=== PATIENT | male | born 1950 | race Caucasian/White ===

== ENCOUNTER 2023-04-11 10:05 | Emergency (ER) | payer MEDICARE, OTHER, SELFPAY ==
[2023-04-11 10:14] VITALS: BP 157/96; PULSE 76; RESP 17; TEMP 36.7; O2SAT 100; BMI 23.6
[2023-04-11 10:58] LABS: Basophils # 0.1 10^3/uL (0.0-0.1); Basophils % 0.9 %; Eosinophils # 0.1 10^3/uL (0.0-0.8); Eosinophils % 2.2 %; Hematocrit 40.4 % (42.0-52.0); Hemoglobin 14.3 g/dL (11.7-16.6); Lymphocytes # 1.4 10^3/uL (0.8-4.8); Lymphocytes % 22.1 %; Mean Corpuscular HGB Conc 35.4 g/dL (30.0-36.0); Mean Corpuscular Hemoglobin 34.3 pg (28.0-34.0); Mean Corpuscular Volume 96.9 fl (80-94); Mean Platelet Volume 10.2 fL (7.4-10.4); Monocytes # 0.5 10^3/uL (0.2-0.9); Monocytes % 7.1 %; Neutrophils # 4.37 10^3/uL (1.8-7.7); Neutrophils % 67.5 %; Nucleated Red Blood Cells % 0 %; Platelet Count 145 10^3/cmm (130-400); Red Blood Count 4.17 10^6/uL (4.1-5.3); Red Cell Distribution Width 12.2 % (12.1-15.1); White Blood Count 6.5 10^3/uL (4.0-10.0)
--- NOTE | 2023-04-11 11:06 | XR_ITS ---
WS: [id number] Left leg including the tibia and fibula, 4 views, 04/11/2023 Clinical Data: LEG PAIN Comparison: None. Findings: No fractures or dislocations are seen. The tibia and fibula are intact. The soft tissues are normal. There is minimal vascular calcification. XR/XR tibia fibula LT 2V [id number] Impression: Negative left leg
--- NOTE | 2023-04-11 11:06 | XR_ITS ---
WS: [id number] Right leg including the tibia and fibula, 4 views, 04/11/2023 Clinical Data: leg pain Comparison: None. Findings: No fractures or dislocations are seen. The tibia and fibula are intact. The soft tissues are normal. Vascular calcifications. XR/XR tibia fibula RT 2V [id number] Impression: Negative right leg.
--- NOTE | 2023-04-11 11:16 | W.ED.EXTPRO ---
HPI - Extremity Problem General: Chief complaint: Extremity Problem,Nontraumatic Stated complaint: legs cramping Time Seen by Provider: 04/11/23 10:13 History of Present Illness: Patient is in today for leg pain. He reports that approximately 2:00 this morning he woke up with bilateral pain to his calves. He reports the pain is on the lateral aspect of the calves. He denies any posterior calf pain. He denies any recent injury or new activity. He denies any recent prolonged travel or sitting. He denies any history of blood clot. He denies shortness of breath or chest pain. He states that the pain is worse with weightbearing and palpation and is better with rest. He denies any saddle anesthesia, loss of bowel or bladder control. He did babysit his grandchildren yesterday but that is not a new occurrence for him. He states that it feels like muscle spasming however he does not feel the muscle spasm Associated symptoms: Deny chest pain or fever(s) Review of Systems Const: Denies: fever(s) or chills Card: Denies: chest pain or palpitations Resp: Denies: dyspnea, productive cough or non-productive cough Musc: Reports: other (Pain to bilateral lateral calves) Physical Exam Const: COMMON NORMALS: no acute distress, patient oriented x3 and alert Neck/C-Spine: COMMON NORMALS: no JVD Resp: COMMON NORMALS: normal respiratory effort, No use of accessory muscles and clear to auscultation bilaterally AUSCULTATION: clear to auscultation bilaterally Cardio: COMMON NORMALS: no JVD, regular rate, regular rhythm and S1 normal heart sound present RATE: regular rate RHYTHM: regular rhythm HEART SOUNDS: S1 normal heart sound present Extremity: NARRATIVE EXTREMITY EXAM: There is no obvious bony or soft tissue deformity noted to bilateral lower extremities. There is no erythema or swelling appreciated. Patient does have some tenderness to palpation of the lateral musculature of the calf. Neuro: COMMON NORMALS: patient oriented x3 SENSORIUM/ORIENTATION: Yes alert Course Vital Signs: Vital signs: Vital Signs Temperature 98.1 F 04/11/23 10:14 Pulse Rate 68 04/11/23 13:17 Respiratory Rate 17 04/11/23 10:14 Blood Pressure 158/96 04/11/23 11:49 Pulse Oximetry 98 04/11/23 13:17 Oxygen Delivery Me thod Room Air 04/11/23 10:14 MDM - Extremity (Nontraumatic) Medical Decision Making Patient is in for sudden onset bilateral lower extremity pain. Considered DVT, muscle pain, muscle spasm, electrolyte imbalance, stress fracture, central disc bulge lumbar. Wells score (-2). Labs do not indicate any major bacterial infection. Potassium is within normal limits. Sodium is slightly low. Ultrasound bilateral lower extremities does not show any evidence of a DVT.. X-rays bilateral tib-fib's no acute osseous deformities appreciated. I did discuss his case with Dr. Geronimo who agrees that lower extremity ultrasound should be done. Discussed results of ultrasounds with Dr. Geronimo and he advised that he recommends referral to Ortho spine surgeon for patient for potential further evaluation and rule out bulging disc. Discussed this with patient who is very agreeable to plan of care. Provided burst pack of steroids. Dr. Flores had left I spoke with Dr. Juárez who provided outpatient pain control hydrocodone 5 325 mg 1 p.o. every 6 hours #12 no refills. Advised patient to return to the ER as needed for any new or worsening symptoms. Lab Data 04/11/23 10:47 04/11/23 10:47 Radiology Impressions Tibia/Fibula X-Ray 04/11/23 11:06 Impression: Negative left leg Laboratory Results WBC 6.5 10^3/uL (4.0-10.0) 04/11/23 10:47 RBC 4.17 10^6/uL (4.1-5.3) 04/11/23 10:47 Hgb 14.3 g/dL (11.7-16.6) 04/11/23 10:47 Hct 40.4 % (42.0-52.0) L 04/11/23 10:47 MCV 96.9 fl (80-94) H 04/11/23 10:47 MCH 34.3 pg (28.0-34.0) H 04/11/23 10:47 MCHC 35.4 g/dL (30.0-36.0) 04/11/23 10:47 RDW 12.2 % (12.1-15.1) 04/11/23 10:47 Plt Count 145 10^3/cmm (130-400) 04/11/23 10:47 MPV 10.2 fL (7.4-10.4) 04/11/23 10:47 Neut % (Auto) 67.5 % 04/11/23 10:47 Lymph % (Auto) 22.1 % 04/11/23 10:47 [place] % (Auto) 7.1 % 04/11/23 10:47 Eos % (Auto) 2.2 % 04/11/23 10:47 Baso % (Auto) 0.9 % 04/11/23 10:47 Neut # (Auto) 4.37 10^3/uL (1.8-7.7) 04/11/23 10:47 Lymph # (Auto) 1.4 10^3/uL (0.8-4.8) 04/11/23 10:47 [place] # (Auto) 0.5 10^3/uL (0.2-0.9) 04/11/23 10:47 Eos # (Auto) 0.1 10^3/uL (0.0-0.8) 04/11/23 10:47 Baso # (Auto) 0.1 10^3/uL (0.0-0.1) 04/11/23 10:47 Nucleated RBC % (auto) 0 % 04/11/23 10:47 Nucleated RBCs # 0.0 /100WBC 04/11/23 10:47 Sodium 135 mmol/L (136-145) L 04/11/23 10:47 Potassium 4.0 mmol/L (3.5-5.1) 04/11/23 10:47 Chloride 100 mmol/L (98-107) 04/11/23 10:47 Carbon Dioxide 23 mmol/L (22-29) 04/11/23 10:47 Anion Gap 16.0 (5-19) 04/11/23 10:47 BUN 7 mg/dL (8-23) L 04/11/23 10:47 Creatinine 0.6 mg/dL (0.7-1.2) L 04/11/23 10:47 GFR Calculation 133.2 mL/min (90-130) H 04/11/23 10:47 Glucose 106 mg/dL (65-115) 04/11/23 10:47 Calculated Osmolality 278 mOsm/kg (285-295) L 04/11/23 10:47 Calcium 9.2 mg/dL (8.5-10.5) 04/11/23 10:47 Total Bilirubin 0.4 mg/dL (0.15-1.2) 04/11/23 10:47 AST 19 U/L (0-40) 04/11/23 10:47 ALT 17 U/L (0-41) 04/11/23 10:47 Alkaline Phosphatase 75 U/L (40-130) 04/11/23 10:47 Total Protein 6.0 g/dL (6.6-8.7) L 04/11/23 10:47 Albumin 4.2 g/dL (3.5-5.2) 04/11/23 10:47 Globulin 1.8 g/dL (1.3-4.6) 04/11/23 10:47 Discharge Plan Discharge Patient Disposition: Home Clinical Impression: Acute leg pain Condition: Stable Prescriptions: New prednisone 20 mg tablet 40 mg PO DAILY 5 Days Qty: 10 0RF Rx Instructions: days 11-21 of therapy No Action amlodipine 5 mg tablet 5 mg PO DAILY trazodone 100 mg tablet 100 mg PO DAILY Discharge Orders: Discharge ED (Routine); Ordered 04/11/23 Ordered By: Zofia Gibbs Referrals: Rell Quiles DO [Primary Care Provider] - Discharge Activity: Increase activity as tolerated Activity Restrictions/Additional Instructions: Take prednisone as directed with food. Take pain medication as directed as needed for pain. Do not drive or operate machinery after taking pain medication. Follow-up with orthopedics/spine surgeon for continued evaluation of persisting pain. Return to the ER as needed for new or worsening symptoms Coding Level of Care Code ED Interrelated Special Education Teacher for Doug Gant
[2023-04-11 11:17] LABS: Alanine Aminotransferase 17 U/L (0-41); Albumin Level 4.2 g/dL (3.5-5.2); Alkaline Phosphatase 75 U/L (40-130); Aspartate Amino Transferase 19 U/L (0-40); Blood Urea Nitrogen 7 mg/dL (8-23); Calcium 9.2 mg/dL (8.5-10.5); Carbon Dioxide 23 mmol/L (22-29); Chloride 100 mmol/L (98-107); Globulin 1.8 g/dL (1.3-4.6); Glomerular Filtration Rate 133.2 mL/min (90-130); Glucose 106 mg/dL (65-115); Osmolality Calculated 278 mOsm/kg (285-295); Sodium 135 mmol/L (136-145); Total Bilirubin 0.4 mg/dL (0.15-1.2)
--- NOTE | 2023-04-11 11:17 | USCV_ITS ---
JuAmos taylor Age: 72 Gender: M : 1950 Exam Date: 04/11/2023 11:52 Ordering Phys: Zofia Gibbs Technologist: KRYSTIN [place] [facility] [place] BLE PAIN HISTORY: Lower extremity pain. PROCEDURES: Venous duplex imaging was performed in bilateral lower extremities. The following venous structures were evaluated: common femoral vein, profunda vein, proximal portion of the greater saphenous vein, superficial femoral vein, and the popliteal vein. In addition, the posterior tibial and peroneal trunk were evaluated. Serial compression, augmentation maneuvers, and spectral Doppler flow evaluation were performed. FINDINGS: Normal 2-D Doppler and augmentation and compressibility throughout the lower extremity venous structures. Additional imaging through the proximal calf veins also reveals no thrombus. Limited evaluation of the greater saphenous vein is patent with no thrombus. Complex cystic mass with low level echos and no vascularity measuring 3.1 cm in the left popliteal fossa. CONCLUSIONS No DVT bilateral lower extremities. Dr. Diana Waters DO (Electronically Signed) Final Date: 11 April 2023 12:12 S
[2023-04-11 11:49] VITALS: BP 158/96; PULSE 60; O2SAT 98
[2023-04-11 13:17] VITALS: PULSE 68; O2SAT 98
--- NOTE | 2023-04-11 14:37 | DCPLANNER ---
Addendum entered by Ambar Crockett 04/16/23 15:08: technology project manager called [facility] to confirm that patients information had been received. technology project manager was told that it was received, will be reviewed, and clinic will call patient with appointment information. Original Note: technology project manager had message to schedule an outpatient appointment for patient with [facility]. technology project manager faxed patients information to the [facility] clinic, patients information will be reviewed. Clinic will call patient with appointment information.
== END 2023-04-11 13:18 | disposition home or self-care (01) ==
PROVIDERS: Emergency Provider Nurse Practitioner Family; PCP Internal Medicine
DX: M79.605 Pain in left leg (principal); M79.604 Pain in right leg
CPT/HCPCS: 36415; 73590; 80053; 85025; 93970; 99285

== ENCOUNTER 2025-03-02 10:40 | Emergency (ER) | payer MEDICARE, OTHER, SELFPAY ==
--- NOTE | 2025-03-02 10:44 | CTR_ITS ---
PROCEDURE INFORMATION: Exam: CT Head Without Contrast Exam date and time: 03/02/2025 11:48 AM Age: 74 years old Clinical indication: Injury or trauma; Fall; Blunt trauma (contusions or hematomas); Injury details: Fell in shower hitting posterior head on bathtub x this am TECHNIQUE: Imaging protocol: Computed tomography of the head without contrast. Radiation optimization: All CT scans at this facility use at least one of these dose optimization techniques: automated exposure control; mA and/or kV adjustment per patient size (includes targeted exams where dose is matched to clinical indication); or iterative reconstruction. COMPARISON: No relevant prior studies available. RADIATION DOSE METRICS: Total DLP (mGy-cm): 1055.83 FINDINGS: Brain: Moderate periventricular and subcortical white matter hypodensities compatible with chronic small vessel ischemic disease. No intracranial hemorrhage. No acute infarct. No extra-axial fluid collection. Cerebral ventricles: No ventriculomegaly. Paranasal sinuses: Multifocal sinus opacification. Mastoid air cells: Visualized mastoid air cells are well aerated. Bones: Unremarkable. No acute fracture. Soft tissues: Calcified soft tissue lesion in the right lateral scalp CT/CT head wo con* [id number] IMPRESSION: No acute intracranial abnormality.
[2025-03-02 10:46] VITALS: BP 114/62; PULSE 88; RESP 16; TEMP 36.7; O2SAT 97; BMI 24.3
--- OUTSIDE RECORDS SUMMARY | 2025-03-02 11:25 | XMS_ITS | Clinical Summary ---
Author Organization [facility] Address [address] [facility] Attn: Epic Prelude ADT [place] [address] Care Team Providers Care Dryer Operator Name Role Phone Rell Quiles DO Primary Care Provide r Allergies No known active allergies Medications traZODone (DESYREL) 100 mg tablet 1 Tablet daily at bedtime. 1/2 to 1 tab nightly as needed 5 10/07/2018 Active omeprazole (PriLOSEC) 40 mg Capsule, Delayed Release(E.C.) Take 40 mg by mouth 1 time daily as needed. 09/18/2018 Active amLODIPine (NORVASC) 5 mg tablet Take 5 mg by mouth daily. 08/11/2019 Active OTHER Take 1 Tablet by mouth. RESTFUL LEGS as needed 09/24/2019 Active albuterol sulfate HFA 90 mcg/actuation aerosol inhaler INHALE 2 PUFFS EVERY 4 HOURS BY MOUTH NEEDED Active tadalafiL (CIALIS) 20 mg tablet Take 20 mg by mouth 1 time daily as needed. Active Active Problems Problem Noted Date Diagnosed Date Lumbar post-laminectomy syndrome 01/12/2025 History of lumbar fusion 01/12/2025 Degeneration of intervertebr al disc of lumbosacral region with discogenic back pain and lower extremity pain 01/12/2025 Discogenic low back pain 01/12/2025 Lumbosacral spondylosis without myelopathy 01/12 Lumbar facet joint pain 01/12/2025 Low back pain 12/09/2024 Wound dehiscence, surgical 10/19/2019 Spinal stenosis of lumbar re gion with neurogenic claudication 10/13/2019 COPD (chronic obstructive pulmonary disease) Gastroesophageal reflux disease without esophagi tis 09/24/2019 Essential hypertension 09/24/2019 Insomnia 09/24/2019 Preoperative general physical examination 2019 Restless leg syndrome 09/24/2019 History of lumbar surgery 12/14/2018 Overview (01/04/2021): 08/27/12 - L4-5 fusion; 02/2011 L L4-5 lami/discectomy [facility] of lumbar spine 12/15/19 19 Lumbar facet arthropathy 12/14/2018 Left lumbar radiculitis 12/14/2018 DDD (degenerative disc disease), lumbar 05/07/20 11 Degenerative lumbar spinal stenosis 01/15/2011 Thoracic or lumbosacral neuritis or radiculitis 01/15/2011 Encounters Date Type Department Care Team Description 02/15/2025 Orders Only [facility] [address] [place] [phone] Dmitriy Dhaliwal MD Spinal stenosis of lumbar region with neurogenic claudication (Primary Dx); Lumbar radiculitis 02/08/2025 External Device Data ST[facility] ABSTRACTION Provider, Abstract 02/08/2025 External Device Data [facility] ABSTRACTION Provider, Abstract 01/27/2025 3:07 PM CDT - 01/27/2025 11:59 PM CDT Hospital Encounter [facility] [address] [place] [phone] Dmitriy Dhaliwal MD Discharge Disposition: Home or Self Care 01/27/2025 External Device Data STL ABSTRACTION Provider, Abstract 01/27/2025 External Device Data [facility] ABSTRACTION Provider, Abstract 01/17/2025 Results Follow-Up [facility] [address] [place] [phone] Dmitriy Dhaliwal MD XR LUMBAR SPINE 4+ VW, MRI LUMBAR W WO CONTRAST 01/12/2025 1:10 PM CDT Ancillary Procedure [facility] [address] [place] [phone] Dmitriy Dhaliwal MD Lumbar post-laminectomy syndrome; History of lumbar fusion; Degeneration of intervertebral disc of lumbosacral region with discogenic back pain and lower extremity pain; Degeneration of intervertebral disc of lumbar region with discogenic back pain and lower extremity pain; Discogenic low back pain; Lumbosacral spondylosis without myelopathy; Lumbar facet joint pain 01/12/2025 12:30 PM CDT Office Visit [facility] [address] [place] [address] Dmitriy Dhaliwal MD Lumbar post-laminectomy syndrome (Primary Dx); Spinal stenosis of lumbar region with neurogenic claudication; History of lumbar fusion; Degeneration of intervertebral disc of lumbosacral region with discogenic back pain and lower extremity pain; Degeneration of intervertebral disc of lumbar region with discogenic back pain and lower extremity pain; Discogenic low back pain; Lumbosacral spondylosis without myelopathy; Lumbar facet joint pain 12/14/2024 External Device Data STL ABSTRACTION Provider, Abstract 12/13/2024 Telephone [facility] - Orthopedic [facility] [address] [place] [phone] Vinod Mireles MD General from Last 3 Months Family History Medical History Relation Name Comments Unknown Brother 1 No Known Problems Brother 2 Heart Disease Father Heart Disease Mother Unknown Sister 1 Unknown Sister 2 Unknown Sister 3 Unknown Sister 4 Unknown Sister 5 Healthy Son 1 Healthy Son 2 Relation Name Status Comments Brother 1 Alive Brother 2 (Age 14) in hu ngting accident Daughter none Father Mother Sister 1 Alive Sister 2 Alive Sister 3 Alive Sister 4 Alive Sister 5 Alive Son 1 Alive Son 2 Alive Social History Tobacco Use Types Packs/Day Years Used Date Smoking Tobacco: Former Cigarettes Q uit: 09/24/2016 Smokeless Tobacco: Never Alcohol Use Standard Drinks/Week Comments Yes 14 (1 standard drink = 0.6 oz pu re alcohol) Sex and Gender Information Value Date Recorded Sex Assigned at Not on file Legal Sex Male 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 Gender Identity Not on file Sexual Orientation Not on file Last Filed Vital Signs Vital Sign Reading Time Taken Comments Blood Pressure 142/78 01/12/2025 12:22 PM CDT Pulse 82 01/14/2020 1:43 PM CDT Temperature 36.9 C (98.5 F) 01/14/2020 1:43 PM CDT Respiratory Rate 18 10/19/2019 1:50 PM ART SPECIALIST Oxygen Saturation - - Inhaled Oxygen Concentration - - Weight 77.1 kg (170 lb) 01/12/2025 12:22 PM CDT Height 177.8 cm (5' 10 ) 01/12/2025 12:22 PM CDT Body Mass Index 24.39 01/12/2025 12:22 PM CDT Plan of Treatment Upcoming Encounters Date Type Department Care Team (Late st Contact Info) Description 03/10/2025 12:50 PM CDT Appointment [facility] [place] [address] [place] [address] Dmitriy Dhaliwal MD [address] [place] [address] 03/15/2025 1:00 PM CDT Office Visit [facility] Neuro[facility] [address] [place] [address] Dmitriy Dhaliwal MD [address] [place] [address] Amy Vasquez, PA [address] [place] [address] 03/23/2025 1:00 PM CDT Office Visit [facility] [address] [place] [address] Vinod Mireles MD [address] [place] [address] Health Maintenance Due Date Last Done Comments DTAP/TDAP/TD VACCINES (1 - Tdap) 1971 PNEUMOCOCCAL VACCINE 50+ YEA RS (1 of 2 - PCV) 1971 FIT-DNA Q 3 years 1997 FIT/FOBT Q 1 year 1997 Flex Sig/CT Colonography Q 5 years 1997 ZOSTER VACCINE (1 of 2) 2002 RSV VACCINE (60+ or ) (1 - Risk 60-74 years 1-dose series) 2012 Abdominal Aortic Aneurysm (AAA) Screening 2017 INFLUENZA VACCINE (#1) 2024 COLORECTAL SCREENING 10/20/2025 10/20/2015, 05/27/20 Colorectal Cancer Screening 10/20/2025 Medical Devices Implanted Type Area Curing Press Operator Device Identifier Shelf Expiration Date Model / Serial / Lot Log [id number] - Tissue Substitutes & Biologicals - 1 - Duragen Plus [id number] Implanted:Qty: 1 on 02/07/2011 Biological N/A: Spine Lumbar [employer] 11/06/2013 [id number] / NA / [id number] Vitoss Foam Ba 5ml - Sna Implanted:Qty: 1 on 08/27/2012 Biological N/A: Spine Lumbar ORTHOVITA 12/07/2013 / NA / [id number] Sealant Duraseal 5ml [id number] Implanted:01/2020 by Reginaldo Bolanos MD (Quantity not on file) Biological N/A: Spine Lumbar [employer] GIA 08/07/2020 / / [id number] Peek Guadalupe Implanted:Qty: 1 on 08/27/2012 by Jorge Lugo MD Cage N/A: Spine Lumbar 02/06/2013 [id number] / NA / [id number] Description:[id number] Hemostatic Surgiflo 8ml W/Thrombin 2994 - [id number] Implanted:01/2020 by Reginaldo Bolanos MD (Quantity not on file) Hemostatic N/A: Spine Lumbar J&J- ETHICON INC 07/08/2020 2994 / / [id number] Hemostatic Surgiflo 8ml W/Thrombin 2994 - [id number] Implanted:01/2020 by Reginaldo Bolanos MD (Quantity not on file) Hemostatic N/A: Spine Lumbar J&J- [employer] 08/07/2020 2994 / / [id number] Derick Nxt 45mm 3510-045 - [id number] Implanted:Qty: 2 on 08/27/2012 Derick N/A: Spine Lumbar KENIA-SPINE 3510-045 / [id number] / Closure Top Nita 3301-1 - [id number] Implanted:Qty: 4 on 08/27/2012 Screw N/A: Spine Lumbar KENIA-SPINE 3301- / [id number] / NA Pathfinder Nxt Screw Implanted:Qty: 4 on 08/27/2012 by Jorge Lugo MD Screw Spine Lumbar [id number] / / N/A Wire K Nitinol Blunt 3550-191 - [id number] Implanted:Qty: 4 on 08/27/2012 Wire N/A: Spine Lumbar KENIA-SPINE [id number] / [id number] / Procedures Procedure Name Priority Date/Time Associated Diagnosis Comments MRI LUMBAR W WO CONTRAST Routine 01/27/2025 4:00 PM CDT Lumbar post-laminectomy syndrome Spinal stenosis of lumbar region with neurogenic claudication History of lumbar fusion Degeneration of intervertebral disc of lumbosacral region with discogenic back pain and lower extremity pain Degeneration of intervertebral disc of lumbar region with discogenic back pain and lower extremity pain Discogenic low back pain Lumbosacral spondylosis without myelopathy Lumbar facet joint pain XR LUMBAR SPINE 4+ VW Routine 01/12/2025 1:17 PM CDT Lumbar post-laminectomy syndrome History of lumbar fusion Degeneration of intervertebral disc of lumbosacral region with discogenic back pain and lower extremity pain Degeneration of intervertebral disc of lumbar region with discogenic back pain and lower extremity pain Discogenic low back pain Lumbosacral spondylosis without myelopathy Lumbar facet joint pain from Last 3 Months Results * MRI LUMBAR W WO CONTRAST (01/27/2025 4:00 PM CDT) Anatomical Region Laterality Modality Spine Magnetic Resonan ce 01/27/2025 4:05 PM CDT Impressions 01/28/2025 7:02 AM CDT IMPRESSION: Please see below. Exam: MRI LUMBAR W WO CONTRAST Date/Time of Exam: 01/27/2025 4:00 PM Reason For Exam: Spinal stenosis, lumbar. Diagnosis: Lumbar post-laminectomy syndrome; Spinal stenosis of lumbar region with neurogenic claudication; History of lumbar fusion; Degeneration of intervertebral disc of lumbosacral region with discogenic back pain and lower extremity pain; Degeneration of intervertebral disc of lumbar region with discogenic back pain and lower extremity pain; Discogenic low back pain; Lumbosacral spondylosis without myelopathy; Lumbar facet joint pain. Technique: MRI of the lumbar spine was performed prior to and following the administration of intravenous contrast. Contrast: GADOBENATE DIMEGLUMINE 529 MG/ML(0.1 MMOL/0.2 ML) INTRAVENOUS SOLUTION Given:15 mL Findings: Comparison 05/01/2011. Previous L4-5 posterior fusion. Previous posterior decompression at L2-3, L3-4 and L4-5. No evidence of hardware failure. Grade 1 anterolisthesis of L3 on L4. Conus medullaris terminates at L1. The retroperitoneal structures demonstrate no acute abnormal. L1-2: Patent spinal canal and neural foramen. L2-3: Symmetric disc bulge and facet arthropathy with mild bilateral neural foraminal narrowing. L3-4: Uncovered disc, symmetric disc bulge and facet arthropathy. Severe narrowing of the spinal canal and compression of the cauda equina. Moderate bilateral neural foraminal narrowing. L4-5: Bilateral facet arthropathy with ligamentum flavum infolding. Mild narrowing of the lateral recesses. Moderate bilateral neural foraminal narrowing. L5-S1: Symmetric disc bulge and facet arthropathy. Mild bilateral neural foraminal narrowing. IMPRESSION: Previous L4-5 posterior fusion without evidence of hardware failure. Persistent narrowing of the lateral recesses and moderate bilateral neural foraminal narrowing secondary to facet arthropathy. Degenerative change at L3-4 with severe narrowing of the spinal canal and compression of the cauda equina secondary to combination of anterolisthesis and facet arthropathy. Moderate bilateral L3-4 neural foraminal narrowing. Additional degenerative findings detailed above. Narrative Procedure Note Chris Tavarez, - 01/28/2025 IMPRESSION: Please see below. Exam: MRI LUMBAR W WO CONTRAST Date/Time of Exam: 01/27/2025 4:00 PM Reason For Exam: Spinal stenosis, lumbar. Diagnosis: Lumbar post-laminectomy syndrome; Spinal stenosis of lumbar region with neurogenic claudication; History of lumbar fusion; Degeneration of intervertebral disc of lumbosacral region with discogenic back pain and lower extremity pain; Degeneration of intervertebral disc of lumbar region with discogenic back pain and lower extremity pain; Discogenic low back pain; Lumbosacral spondylosis without myelopathy; Lumbar facet joint pain. Technique: MRI of the lumbar spine was performed prior to and following the administration of intravenous contrast. Contrast: GADOBENATE DIMEGLUMINE 529 MG/ML(0.1 MMOL/0.2 ML) INTRAVENOUS SOLUTION Given:15 mL Findings: Comparison 05/01/2011. Previous L4-5 posterior fusion. Previous posterior decompression at L2-3, L3-4 and L4-5. No evidence of hardware failure. Grade 1 anterolisthesis of L3 on L4. Conus medullaris terminates at L1. The retroperitoneal structures demonstrate no acute abnormal. L1-2: Patent spinal canal and neural foramen. L2-3: Symmetric disc bulge and facet arthropathy with mild bilateral neural foraminal narrowing. L3-4: Uncovered disc, symmetric disc bulge and facet arthropathy. Severe narrowing of the spinal canal and compression of the cauda equina. Moderate bilateral neural foraminal narrowing. L4-5: Bilateral facet arthropathy with ligamentum flavum infolding. Mild narrowing of the lateral recesses. Moderate bilateral neural foraminal narrowing. L5-S1: Symmetric disc bulge and facet arthropathy. Mild bilateral neural foraminal narrowing. IMPRESSION: Previous L4-5 posterior fusion without evidence of hardware failure. Persistent narrowing of the lateral recesses and moderate bilateral neural foraminal narrowing secondary to facet arthropathy. Degenerative change at L3-4 with severe narrowing of the spinal canal and compression of the cauda equina secondary to combination of anterolisthesis and facet arthropathy. Moderate bilateral L3-4 neural foraminal narrowing. Additional degenerative findings detailed above. us Dmitriy Dhaliwal MD MR ORDERABLES Final Resu lt * XR LUMBAR SPINE 4+ VW (01/12/2025 1:17 PM CDT) Anatomical Region Laterality Modality Spine Computed Radiogr aphy 01/12/2025 1:17 PM CDT Impressions 01/13/2025 2:29 PM CDT IMPRESSION: Please see below. Exam: XR LUMBAR SPINE 4+ VW Date/Time of Exam: 01/12/2025 1:17 PM REASON FOR EXAM: See Diagnosis. DIAGNOSIS: Lumbar post-laminectomy syndrome; History of lumbar fusion; Degeneration of intervertebral disc of lumbosacral region with discogenic back pain and lower extremity pain; Degeneration of intervertebral disc of lumbar region with discogenic back pain and lower extremity pain; Discogenic low back pain; Lumbosacral spondylosis without myelopathy; Lumbar facet joint pain. Findings: Comparison is made to the prior examination from 03/26/2019. Posterior spinal fusion hardware at L4-L5 with intervertebral disc replacement appears stable since the prior examination. There is slight progression of intervertebral disc space narrowing and endplate degeneration at L2-L3 and L3-L4. Mild degenerative retrolisthesis of L2 on L3 is noted. There is lower lumbar facet arthropathy. There is no significant change in the retrolisthesis of L2 on L3 with flexion and extension. Scattered atherosclerotic changes are noted. IMPRESSION: Lumbar spondylosis, slightly progressed since 03/26/2019 at L2-L3 and L3-L4. There is no evidence of segmental instability with flexion and extension views. Narrative Procedure Note Solo Saldaña MD - 01/13/2025 IMPRESSION: Please see below. Exam: XR LUMBAR SPINE 4+ VW Date/Time of Exam: 01/12/2025 1:17 PM REASON FOR EXAM: See Diagnosis. DIAGNOSIS: Lumbar post-laminectomy syndrome; History of lumbar fusion; Degeneration of intervertebral disc of lumbosacral region with discogenic back pain and lower extremity pain; Degeneration of intervertebral disc of lumbar region with discogenic back pain and lower extremity pain; Discogenic low back pain; Lumbosacral spondylosis without myelopathy; Lumbar facet joint pain. Findings: Comparison is made to the prior examination from 03/26/2019. Posterior spinal fusion hardware at L4-L5 with intervertebral disc replacement appears stable since the prior examination. There is slight progression of intervertebral disc space narrowing and endplate degeneration at L2-L3 and L3-L4. Mild degenerative retrolisthesis of L2 on L3 is noted. There is lower lumbar facet arthropathy. There is no significant change in the retrolisthesis of L2 on L3 with flexion and extension. Scattered atherosclerotic changes are noted. IMPRESSION: Lumbar spondylosis, slightly progressed since 03/26/2019 at L2-L3 and L3-L4. There is no evidence of segmental instability with flexion and extension views. us Dmitriy Dhaliwal MD DIAGNOSTIC IMAGING ORDERAB LES Final Result from Last 3 Months Insurance MEDICARE PART A AND B [employer] LETTER [employer]RI[employer] OAP * Guarantor: SAL OHARA Account Type Relation to Patient Date of Phone Billing Address Personal/Family [address] [place] [address] [facility] Care Teams Dryer Operator Relationship Specialty Start Date End Date Rell Quiles DO [address] [facility] [place] [address] PCP - General Internal Medicine 06/15/19
--- OUTSIDE RECORDS SUMMARY | 2025-03-02 11:25 | XMS_ITS | Encounter Summary ---
Author Organization [facility] Address [address] [place] [address] Care Team Providers Care Mine Equipment Design Engineer Name Role Phone QuilesRell polanco Primary Care Provide r Encounter Details Date Type Department Care Team (Late st Contact Info) Description 08/01/2017 Lab Requisition [facility] General Laboratory Services [address] [place] [address] [place] [address] [place] [phone] Social History Tobacco Use Types Packs/Day Years Used Date Smoking Tobacco: Every Day Cigarettes 1 40 Smokeless Tobacco: Never Alcohol Use Standard Drinks/Week Comments Yes 4.2 (1 standard drink = 0.6 oz p ure alcohol) Sex and Gender Information Value Date Recorded Sex Assigned at Not on file Legal Sex 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 Gender Identity Not on file Sexual Orientation Not on file Occupation Industry Job Start Date Job End Date Not on file Not on file Not on file Not on file documented as of this encounter Plan of Treatment Not on file documented as of this encounter Procedures Procedure Name Priority Date/Time Associated Diagnosis Comments URINALYSIS MICROSCOPY ONLY Routine 07/31/2017 6:40 PM HEAD SCREEN WORKER URINALYSIS W/REFLEX MICROSCOPIC Routine 07/31/2017 6:40 PM HEAD SCREEN WORKER documented in this encounter Results * URINALYSIS MICROSCOPY ONLY (07/31/2017 6:40 PM HEAD SCREEN WORKER) WBC UA 0-2 0 - 2 /hpf 08/01/2017 11:00 AM [facility] RBC UA 0-2 0 - 2 /hpf 08/01/2017 11:00 AM [facility] BACTERIA UA Negative Negative /hpf 08/01/2017 11:00 AM [facility] EPITHELIAL CELLS, URINE 0-5 0 - 5 /hpf 08/01/2017 11:00 AM [facility] HYALINE CAST 0-2 None Seen, 0-2 /lpf 08/01/2017 11:00 AM [facility] Urine URINE SPECIMEN OBTAINED BY CLEAN CATCH PROCEDURE / Unknown Collection / Unknown 07/31/2017 6:40 PM HEAD SCREEN WORKER 08/01/2017 10:45 AM [facility] us Simon Hernandez MD URINE ORDERABLES Final Result [facility] CLIA# [id number] [address] [place] [address] * (ABNORMAL) URINALYSIS W/REFLEX MICROSCOPIC (07/31/2017 6:40 PM HEAD SCREEN WORKER) COLOR UA Yellow Pale to dark yellow 08/01/2017 11:00 AM [facility] CLARITY UA Cloudy(A) Clear 08/01/2017 11:00 AM [facility] SPECIFIC GRAVITY UA 1.023 1.003 - 1.035 08/01/2017 11:00 AM [facility] PH UA 7.5 5.0 - 8.0 08/01/2017 11:00 AM [facility] LEUKOCYTE ESTERASE UA Negative Negative 08/01/2017 11:00 AM [facility] NITRITE UA Negative Negative 08/01/2017 11:00 AM [facility] PROTEIN UA Trace(A) Negative 08/01/2017 11:00 AM [facility] GLUCOSE UA Negative Negative 08/01/2017 11:00 AM [facility] KETONES UA Negative Negative 08/01/2017 11:00 AM [facility] UROBILINOGEN UA 4.0(A) <2.0 mg/dL 7 11:00 AM HEAD SCREEN WORKER [facility] BILIRUBIN UA Negative Negative 08/01/2017 11:00 AM HEAD SCREEN WORKER [facility] BLOOD UA Negative Negative 08/01/2017 11:00 AM [facility] Urine URINE SPECIMEN OBTAINED BY CLEAN CATCH PROCEDURE / Unknown Collection / Unknown 07/31/2017 6:40 PM HEAD SCREEN WORKER 08/01/2017 10:45 AM HEAD SCREEN WORKER us Simon Hernandez MD URINE ORDERABLES Final Result [facility] CLIA# [id number] [address] [address] documented in this encounter Visit Diagnoses Not on filedocumented in this encounter Care Teams Mine Equipment Design Engineer Relationship Specialty Start Date End Date Rell Quiles DO [address] [address] PCP - General Internal Medicine 06/15/19 documented as of this encounter
--- OUTSIDE RECORDS SUMMARY | 2025-03-02 11:25 | XMS_ITS | Patient Health Record ---
Author Organization [facility] Address [address] [place] [address] Support Name Relationship Address Phone Amos Nunes Guarantor Unknown [phone] Reason For Referral No Information Plan Of Treatment No Information
--- OUTSIDE RECORDS SUMMARY | 2025-03-02 11:25 | XMS_ITS | Encounter Summary ---
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
--- OUTSIDE RECORDS SUMMARY | 2025-03-02 11:25 | XMS_ITS | Clinical Summary ---
Author Organization [facility] tone Address [address] [place] [address] Care Team Providers Care Game Warden Name Role Phone Rell Quiles DO Primary Care Provide r Allergies No known active allergies Medications tadalafil (CIALIS) 20 mg Oral tablet Take 20 mg by mouth 1 time daily as needed. Active traZODone (DESYREL) 100 mg tablet 1 Tablet daily at bedtime. 1/2 to 1 tab nightly as needed 5 10/07/2018 Active omeprazole (PriLOSEC) 40 mg Capsule, Delayed Release(E.C.) Take 40 mg by mouth 1 time daily as needed. 09/18/2018 Active amLODIPine (NORVASC) 5 mg tablet Take 5 mg by mouth daily. 08/11/2019 Active OTHER Take 1 Tablet by mouth. RESTFUL LEGS as needed Active HYDROcodone-acet aminophen (NORCO) 10-325 mg TabletIndication s:S/P lumbar laminectomy Take 1 Tablet by mouth every 4 hours as needed for Pain. Max Daily Amount: 6 Tablets 42 Tablet 10/15/2019 3:47 PM CHILD CARE CENTER ASSISTANT DIRECTOR 10/14/2019 Active cyclobenzaprine (FLEXERIL) 10 mg tablet Take 1 Tablet (10 mg) by mouth 3 times daily. 30 Tablet 10/15/2019 3:47 PM CHILD CARE CENTER ASSISTANT DIRECTOR 10/15/2019 Active Active Problems Problem Noted Date Diagnosed Date Wound dehiscence, surgical 10/19/2019 Spinal stenosis of lumbar re gion with neurogenic claudication 10/13/2019 COPD (chronic obstructive pulmonary disease) Essential hypertension 09/24/2019 Gastroesophageal reflux disease without esophagi tis 09/24/2019 Restless leg syndrome 09/24/2019 Insomnia 09/24/2019 Preoperative general physical examination 2019 Lumbar facet arthropathy 12/14/2018 History of lumbar surgery 12/14/2018 Overview (12/14/2018): 08/27/12 - L4-5 fusion; 02/2011 L L4-5 lami/discectomy - [facility] stenosis of lumbar spine 12/15/19 19 Left lumbar radiculitis 12/14/2018 DDD (degenerative disc disease), lumbar 05/07/20 11 Thoracic or lumbosacral neuritis or radiculitis 01/15/2011 Degenerative lumbar spinal stenosis 01/15/2011 Family History Medical History Relation Name Comments [...] Years Used Date Smoking Tobacco: Former Cigarettes 1.5 40 0 09/24/1976 - 09/24/2016 Smokeless Tobacco: Never Alcohol Use Standard Drinks/Week Comments Yes 14 (1 standard drink = 0.6 oz pu re alcohol) a few drinks a day Sex and Gender Information Value Date Recorded Sex Assigned at Not on file Legal Sex Male 4:12 AM CHILD CARE CENTER ASSISTANT DIRECTOR Gender Identity Not on file Sexual Orientation Not on file Occupation Industry Job Start Date Job End Date Not on file Not on file Not on file Not on file Last Filed Vital Signs Vital Sign Reading Time Taken Comments Blood Pressure 138/80 04/21/2020 10:11 AM CDT Pulse 82 01/14/2020 1:43 PM CDT Temperature 36.9 C (98.5 F) 01/14/2020 1:43 PM CDT Respiratory Rate 18 10/19/2019 1:50 PM CHILD CARE CENTER ASSISTANT DIRECTOR Oxygen Saturation 96% 01/14/2020 1:43 PM CDT Inhaled Oxygen Concentration - - Weight 92.1 kg (203 lb) 04/21/2020 10:11 AM CDT Height 177.8 cm (5' 10 ) 04/21/2020 10:11 AM CDT stated Body Mass Index 29.13 04/21/2020 10:11 AM CDT Plan of Treatment Health Maintenance Due Date Last Done Comments DTAP/TDAP/TD VACCINES (1 - Tdap) 1971 PNEUMOCOCCAL VACCINE 50+ YEARS (1 of 2 - PCV) 05/07/19 71 COLORECTAL SCREENING 1997 Colorectal Cancer Screening 1997 FIT-DNA Q 3 years 1997 FIT/FOBT Q 1 year 1997 Flex Sig/CT Colonography Q 5 years 1997 ZOSTER VACCINE (1 of 2) 2002 RSV VACCINE (60+ or ) (1 - Risk 60-74 years 1-dose series) 2012 INFLUENZA VACCINE (#1) 2024 Medical Devices Implanted Type Area Wrapper Sizer Device Identifier Shelf Expiration Date Model / Serial / Lot Log [id number] - Tissue Substitutes & Biologicals - 1 - Duragen Plus [id number] Implanted:Qty: 1 on 02/07/[address] [facility] Biological N/A: Spine Lumbar [employer] 11/06/2013 [id number] / NA / [id number] Vitoss Foam Ba 5ml - Sna Implanted:Qty: 1 on 08/27/[address] [facility] Biological N/A: Spine Lumbar ORTHOVITA 12/07/[id number] / NA / [id number] Sealant Duraseal 5ml - [id number] Implanted:01/2020 by Reginaldo Bolanos MD at [facility] (Quantity not on file) Biological N/A: Spine Lumbar [employer]RA [employer]IF[employer] HOLD GIA 08/07/2020 / / [id number] Peek [place] Implanted:Qty: 1 on 08/27/2012 by Jorge Lugo MD at [facility] Cage N/A: Spine Lumbar 02/06/2013 [id number] / NA / [id number] Description:[id number] Hemostatic Surgiflo 8ml W/Thrombin 2994 - [id number] Implanted:01/2020 by Reginaldo Bolanos MD at [facility] (Quantity not on file) Hemostatic N/A: Spine Lumbar J&J- ETHICON INC 07/08/2020 2994 / / [id number] Hemostatic Surgiflo 8ml W/Thrombin 2994 - [id number] Implanted:01/2020 by Rgeinaldo Bolanos MD at [facility] (Quantity not on file) Hemostatic N/A: Spine Lumbar J&J- [employer] INC 08/07/2020 2994 / / [id number] Derick Nxt 45mm 3510-045 - [id number] Implanted:Qty: 2 on 08/27/[address] [facility] Derick N/A: Spine Lumbar KENIA-SPINE 3510-045 / [id number] / Closure Top Nita 3301-1 - [id number] Implanted:Qty: 4 on 08/27/[address] [facility] Screw N/A: Spine Lumbar KENIA-SPINE 3301- / [id number] / NA Pathfinder Nxt Screw Implanted:Qty: 4 on 08/27/2012 by Jorge Lugo MD at [facility] Screw Spine Lumbar KENIA SPINE JOANN ACHARYA [id number] / / N/A Wire K Nitinol Blunt 3550-191 - [id number] Implanted:Qty: 4 on 08/27/[address] [facility] Wire N/A: Spine Lumbar KENIA-SPINE 3550-191 / [id number] / Insurance [facility] [address]AV[address] ASSN OF LETTER CARRIERS MEDICARE PART A AND B RX [facility] [employer] Advance Directives For more information, please contact: [phone] * Full Code (Latest Code Status on File) Date Activated Date Inactivated Comments 10/13/2019 3:27 PM 10/15/2019 5:59 PM * Full Code Date Activated Date Inactivated Comments 08/27/2012 7:12 PM 08/28/2012 12:50 PM * Full Code Date Activated Date Inactivated Comments 08/27/2012 2:29 PM 08/27/2012 7:12 PM * Full Code Date Activated Date Inactivated Comments 08/27/2012 11:02 AM 08/27/2012 2:29 PM * Full Code Date Activated Date Inactivated Comments 02/07/2011 10:44 AM 02/07/2011 10:20 PM Care Teams Game Warden Relationship Specialty Start Date End Date Rell Quiles DO [address] [facility] [address] [place] [address] PCP - General Internal Medicine 06/15/19
--- OUTSIDE RECORDS SUMMARY | 2025-03-02 11:25 | XMS_ITS | Encounter Summary ---
Author Organization [facility] Address [address] [place] [address] Care Team Providers Care Pyrometer Mechanic Name Role Phone Rell Quiles DO Primary Care Provide r Encounter Details Date Type Department Care Team (Latest Contact Info) Description 02/11/2002 Outpatient Historical [facility] Abel Agudelo Jr., MD [address] [place] [address] STREP SORE THROAT (Primary Dx); ACUTE PHARYNGITIS Social History Tobacco Use Types Packs/Day Years Used Date Smoking Tobacco: Never Assessed Sex and Gender Information Value Date Recorded Sex Assigned at Not on file Legal Sex Male 4:12 AM ARCHITECTURAL WOOD MODEL MAKER Gender Identity Not on file Sexual Orientation Not on file documented as of this encounter Plan of Treatment Not on file documented as of this encounter Visit Diagnoses Diagnosis Streptococcal sore throat- Primary Acute pharyngitis documented in this encounter Care Teams Pyrometer Mechanic Relationship Specialty Start Date End Date Rell Quiles DO [address] [facility] [address] [place] [address] PCP - General Internal Medicine 06/15/19 documented as of this encounter
--- OUTSIDE RECORDS SUMMARY | 2025-03-02 11:25 | XMS_ITS | Encounter Summary ---
Author Organization [facility] Address [address] [place] [address] Care Team Providers Care Airplane And Engine Inspector Name Role Phone Rell Quiles DO Primary Care Provide r Encounter Details Date Type Department Care Team (Latest Contact Info) Description 04/13/2001 Outpatient Historical [facility] Abel Agudelo Jr., MD [address] [place] [address] Cellulitis and abscess of unspecified site (Primary Dx); Tobacco use disorder Social History Tobacco Use Types Packs/Day Years Used Date Smoking Tobacco: Never Assessed Sex and Gender Information Value Date Recorded Sex Assigned at Not on file Legal Sex Male 4:12 AM ARROW POINT ATTACHER Gender Identity Not on file Sexual Orientation Not on file documented as of this encounter Plan of Treatment Not on file documented as of this encounter Visit Diagnoses Diagnosis Cellulitis and abscess of unspecified site- Primary Tobacco use disorder documented in this encounter Care Teams Airplane And Engine Inspector Relationship Specialty Start Date End Date Rell Quiles DO [address] [facility] [address] [place] [address] PCP - General Internal Medicine 06/15/19 documented as of this encounter
--- OUTSIDE RECORDS SUMMARY | 2025-03-02 11:25 | XMS_ITS | Encounter Summary ---
Author Organization [facility] Address [address] [place] [address] Care Team Providers Care Machine Fastener Name Role Phone Rell Quiles DO Primary Care Provide r Encounter Details Date Type Department Care Team (Latest Contact Info) Description 11/20/2001 Outpatient Historical [facility] Abel Agudelo Jr., MD [address] [place] [address] OTITIS MEDIA NOS (Primary Dx) Social History Tobacco Use Types Packs/Day Years Used Date Smoking Tobacco: Never Assessed Sex and Gender Information Value Date Recorded Sex Assigned at Not on file Legal Sex Male 4:12 AM MAINTENANCE EQUIPMENT OPERATOR Gender Identity Not on file Sexual Orientation Not on file documented as of this encounter Plan of Treatment Not on file documented as of this encounter Visit Diagnoses Diagnosis Unspecified otitis media- Primary documented in this encounter Care Teams Machine Fastener Relationship Specialty Start Date End Date Rell Quiles DO [address] [place] [address] PCP - General Internal Medicine 06/15/19 documented as of this encounter
--- OUTSIDE RECORDS SUMMARY | 2025-03-02 11:25 | XMS_ITS | Encounter Summary ---
Author Organization [facility] Address [address] [place] [address] Care Team Providers Care International Student Counselor Name Role Phone QuilesRellhaniel Primary Care Provide r Encounter Details Date Type Department Care Team (Late st Contact Info) Description 08/25/2009 Ancillary Orders [facility] [address] [place] [address] Pop Montelongo III, MD [address] [place] [address] Pain Social History Tobacco Use Types Packs/Day Years Used Date Smoking Tobacco: Every Day Alcohol Use Standard Drinks/Week Comments Yes 0 (1 standard drink = 0.6 oz pur e alcohol) Sex and Gender Information Value Date Recorded Sex Assigned at Not on file Legal Sex Male 4:12 AM CARTON FORMING MACHINE ADJUSTER Gender Identity Not on file Sexual Orientation Not on file documented as of this encounter Plan of Treatment Not on file documented as of this encounter Results * XR LUMBAR SPINE 2 OR 3 VW (08/25/2009 11:49 AM CARTON FORMING MACHINE ADJUSTER) Anatomical Region Laterality Modality Spine Computed Radiogr aphy Narrative 08/29/2009 12:34 PM CARTON FORMING MACHINE ADJUSTER AP and lateral radiograph of the lumbosacral spine to include the coccyx shows no evidence of fracture, dislocation, or tumor. He has mild degenerative change of the lumbar region. That is probably where he is getting his radicular symptoms down his left leg. Again, it is very episodic in nature. Procedure Note Pop Montelongo III, MD - 09/04/2009 AP and lateral radiograph of the lumbosacral spine to include the coccyxshows no evidence of fracture, dislocation, or tumor. He has milddegenerative change of the lumbar region. That is probably where he isgetting his radicular symptoms down his left leg. Again, it is veryepisodic in nature. us Pop Montelongo III, MD DIAGNOSTIC IMAGING ORD ERABLES Final Result documented in this encounter Visit Diagnoses Diagnosis Pain Generalized pain documented in this encounter Care Teams International Student Counselor Relationship Specialty Start Date End Date Rell Quiles DO [address] [id number] PCP - General Internal Medicine 06/15/19 documented as of this encounter
--- NOTE | 2025-03-02 12:14 | XR_ITS ---
WS: [id number] Exam: XR hand RT min 3V* [id number] Date/Time of Exam: 03/02/2025 12:14 PM Reason For Exam: injury No acute fracture. No soft tissue foreign bodies. Minimal degenerative changes. XR/XR hand RT min 3V* [id number] IMPRESSION: 1. No fracture. 2. Mild degenerative changes in the IP joints.
--- NOTE | 2025-03-02 12:15 | W.ED.HEATRA ---
HPI - Head Injury General: Chief complaint: Head Injury Stated complaint: fall- hit back of head feels foggy Time Seen by Provider: 03/02/25 12:11 Source: patient Mode of arrival: ambulatory Limitations: no limitations History of Present Illness: 74-year-old male states he fell in the bathtub 2 weeks ago states he hit his posterior head he states since then he has had some headaches and just feeling foggy. States he also injured his right hand has pain over the right pinky finger. He denies any neck pain denies any vomiting or diarrhea. Associated symptoms: Deny nausea, neck pain or vomiting Related Data Home Medications ?Medication ?Instructions ?Recorded ?Confirmed amlodipine 5 mg tablet 5 mg PO DAILY 04/11/23 04/11/23 trazodone 100 mg tablet 100 mg PO DAILY 04/11/23 04/11/23 Allergies Allergy/AdvReac Type Severity Reaction Status Date / Time No Known Allergies Allergy Verified 03/02/25 10:49 Review of Systems Const: Denies: fever(s), chills, body aches or change in appetite Eyes: Denies: blurry vision or eye discomfort ENMT: Denies: throat pain or dental pain Card: Denies: chest pain Resp: Denies: dyspnea GI: Denies: abdominal pain, nausea, vomiting or diarrhea Musc: Reports: extremity pain; Denies: neck pain or back pain Skin/Breast: Denies: rash Neuro: Reports: headache(s) Physical Exam Const: COMMON NORMALS: no acute distress, patient oriented x3 and healthy appearing HENMT: COMMON NORMALS: normocephalic HEAD & SCALP: normocephalic OTHER: Tenderness to posterior scalp Eye: COMMON NORMALS: Equal, round and reactive pupils present and EOMs intact bilaterally PUPIL: Yes Equal, round and reactive pupils present Neck/C-Spine: COMMON NORMALS: full ROM and supple CERVICAL SPINE: Yes cervical ROM normal and No Cervical spine tenderness Chest: COMMONS NORMALS: normal inspection of the chest Resp: COMMON NORMALS: normal respiratory effort, No retractions, No use of accessory muscles and clear to auscultation bilaterally AUSCULTATION: clear to auscultation bilaterally Cardio: COMMON NORMALS: regular rate, regular rhythm and No murmurs present (Cardio) RATE: regular rate RHYTHM: regular rhythm Extremity: COMMON NORMALS: full ROM NARRATIVE EXTREMITY EXAM: Slight tenderness to base of right pinky finger no obvious deformity Neuro: COMMON NORMALS: patient oriented x3, moves all extremities and no focal motor deficits Psych: COMMON NORMALS: mental status grossly normal, Normal thought process present and cooperative THOUGHT PROCESS: Normal thought process present Skin: COMMON NORMALS: no rashes or lesions noted and no wounds GENERAL SKIN EXAM: no rashes or lesions noted Course Vital Signs: Vital signs: Vital Signs Temperature 98.0 F 03/02/25 10:46 Pulse Rate 88 03/02/25 10:46 Respiratory Rate 16 03/02/25 10:46 Blood Pressure 114/62 03/02/25 10:46 Pulse Oximetry 97 03/02/25 10:46 Oxygen Delivery Me thod Room Air 03/02/25 10:46 MDM - Head Injury Medcial Decision Making Patient presents here with a closed head injury head CT here is negative he likely has a concussion he is well-appearing here he stable for discharge follow-up PCP return if worsening. Medical Records I reviewed the patient's medical records. Lab Data Radiology Impressions Head CT 03/02/25 10:44 IMPRESSION: No acute intracranial abnormality. Hand X-Ray 03/02/25 12:14 IMPRESSION: 1. No fracture. 2. Mild degenerative changes in the IP joints. All radiology interpretation(s) finalized by discharge Discharge Plan Discharge Patient Disposition: Home Clinical Impression: Closed head injury Condition: Stable Prescriptions: No Action amlodipine 5 mg tablet 5 mg PO DAILY trazodone 100 mg tablet 100 mg PO DAILY Discharge Orders: Discharge ED (Routine); Ordered 03/02/25 Ordered By: Vladimir Juárez Referrals: Rell Quiles DO [Primary Care Provider, Internal Medicine] - 4-7 days Discharge Diet: Advance as tolerated Discharge Activity: Resume usual activity Patient Instructions: Concussion (ED), Head Injury (ED) Print Language: Andorran Coding Level of Care Code ED Manager Marketing for Doug Gant
[2025-03-02 13:16] VITALS: BP 126/95; PULSE 71; O2SAT 99
[2025-03-02] MEDS: naproxen 500 mg Tablet PO (13:18)
== END 2025-03-02 13:17 | disposition home or self-care (01) ==
PROVIDERS: Emergency Provider Emergency Medicine; PCP Internal Medicine
DX: S09.8XXA Other specified injuries of head, initial encounter (principal); W18.2XXA Fall in (into) shower or empty bathtub, initial encounter; M79.641 Pain in right hand
CPT/HCPCS: 70450; 73130; 99284; J9999